=== PATIENT | female | born 1950 | race African-American/Black ===

== ENCOUNTER 2024-11-05 10:19 | Outpatient (AMB) | payer MEDICARE, OTHER, SELFPAY ==
--- NOTE | 2024-11-05 10:45 | A.OFFVIS_ITS ---
VS Expanded 11/05/24 13:39 11/05/24 13:46 Height 5 ft 5 in 5 ft 5 in Weight 213 lb 13.574 oz 214 lb BMI 35.6 35.6 Intake Visit Reasons: Elevated BMI Nutrition Presentation Details: Pt presents for MNT for Obesity with T2DM pt reports working on diet modification but not able to lose weight , has ques tions regarding protein foods and adequate portion sizes of starches food frequency fruit: 0-1/d ve/wk dairy : 1-2/d fish 0-1/wk beverages: water, juice, soda,m ilk etoh/smoking--- physical activity: ADL UPE-Mhpzwwb-Ub.Jeor Equation Height: 5 ft 5 in Weight: 214 lb Resting Metabolic Rate: 1471.59 Calculated Activity Level: Sedentary Calories Needed to Maintain Weight: 1765.91 Diagnosis Nutrition problem #1: overweight/obesity As related to (etiology) #1: diagnosis As evidenced by (sign/symptom) #1: knowledge deficit of diet Assessment & Plan Assessment & Plan (1) T2DM (type 2 diabetes mellitus): Comment: with obesity Code(s): E11.9 - Type 2 diabetes mellitus without complications Category: Medical Plan: current wt: 97 kg (11/05 ) est kcal needs as per MSJ: 1800 est protein needs as per 1 g/kg BW: 100 est fluid needs as per 30 ml/kg BW: 2900 Recommended fiber > 12 g /day and gradually increase up to 25-28 g /day or as tolerated Nutrition topics discussed : Reviewed (R), Pt verbalized understanding (V) , not applicable (N/A) R, : Healthy Plate Method Concept: R, V, N/A: Carbohydrates: food sources of carbohydrates, relationship of carbohydrates to blood glucose, fatty liver GI health. Recommended total amount of carbohydrates per meals and snack. Differences between simple carbohydrates and complex carbohydrates R, : Lean protein foods including vegan , vegetarian sources of protein. Benefits of protein (including but not limited to healing, nutritional value , benefits in weight loss, glucose control R, : Fats : Source of fats, benefits of fats. Difference between saturated and unsaturated fats. Saturated fats and its contribution to inflammation R, V, N/A: Fiber: food sources and role of fiber in the diet (including but not limited to its role as a prebiotic, benefits in constipation, role in IBS , role in glucose control and cholesterol level) R, V, N/A: Hydration: role of hydration and prevention of dehydration or over hydration. Foods and water content. R, V, N/A: Vitamins and Minerals in foods and supplements R, V, N/A: Interpreting food labels, including serving size, macronutrients, vitamins, minerals, allergens, ingredient list , % daily value Patient Instructions: Work on having 3 scheduled meals per day and 2 snack Aim at reducing total carb per meal to 45 g and snack to less than 20 g following healthy plate method Coding Level of Care Code Nutr Indiv Intake (12685) Diagnoses T2DM (type 2 diabetes mellitus) E11.9 Time Spent (min) 30
[2024-11-05 13:39] VITALS: BMI 35.6
[2024-11-11 11:57] VITALS: BMI 35.6
== END 2024-11-05 11:14 | disposition home or self-care (01) ==
PROVIDERS: PCP Physician Assistant; Visit Provider Dietitian, Registered
DX: E11.9 Type 2 diabetes mellitus without complications (principal)

== ENCOUNTER → 2024-11-05 10:19 | Outpatient (BNVA) | payer MEDICARE, OTHER, SELFPAY | PROVIDERS: PCP Physician Assistant; Visit Provider Dietitian, Registered | DX: E11.9 Type 2 diabetes mellitus without complications (principal); E66.9 Obesity, unspecified; Z71.3 Dietary counseling and surveillance | CPT/HCPCS: 97802 ==

== ENCOUNTER 2025-01-21 10:53 | Outpatient (AMB) | payer MEDICARE, OTHER, SELFPAY ==
--- NOTE | 2025-01-21 11:04 | MHC.AMNUTRGE ---
VS Expanded 01/21/25 11:31 Height 5 ft 5 in Weight 204 lb BMI 33.9 Intake Visit Reasons: obesity t2dm Medication List - Last Reconciled 01/21/[address], LDN carvedilol 12.5 mg PO BID empagliflozin (Jardiance) 10 mg PO DAILY ferrous sulfate (Feosol) 325 mg PO DAILY furosemide (Lasix) 40 mg PO DAILY insulin degludec (Tresiba U-100 Insulin) 30 units subcut DAILY insulin lispro (Admelog U-100 Insulin lispro) 1 sliding scale dose subcut USEASDIRECTD lactobacillus combination no.9 (Adult 50 Plus Probiotic) 4,000 mmu cells PO DAILY levothyroxine 50 mcg PO DAILY magnesium oxide 400 mg PO BID mycophenolate sodium 360 mg PO BID rosuvastatin (Crestor) 40 mg PO DAILY tirzepatide (Mounjaro) 5 mg subcut QWEEK valsartan 320 mg PO DAILY Nutrition Presentation Details: PT presents for MNT follow-up for T2DM Patient reports doing well. Patient's B d average at 163 mg/dl, 67 % within range , 25% high and 8% very high, and less than 1 % low Patient reports having 3 meals a day, her highest blood sugars tend to be in the evening. Today will continue to review at modifications in terms of increasing fiber in the evening meals. Patient reports sometimes taking insulin after the meals versus before meals and these leads to hypoglycemia. Patient verbalizes treating hypoglycemia by following the rule of 15 APC-Ztydkhv-Vt.Jeor Equation Height: 5 ft 5 in Weight: 204 lb Resting Metabolic Rate: 1426.28 Calculated Activity Level: Sedentary Calories Needed to Maintain Weight: 1711.54 Assessment & Plan Assessment & Plan (1) T2DM (type 2 diabetes mellitus): Comment: with obesity Code(s): E11.9 - Type 2 diabetes mellitus without complications Category: Medical Plan: current wt: 97 kg (11/05 ) 92 kg (January/2025 est kcal needs as per MSJ: 1700 est protein needs as per 1 g/kg BW: 100 est fluid needs as per 30 ml/kg BW: 2900 Recommended fiber > 12 g /day and gradually increase up to 25-28 g /day or as tolerated Nutrition topics discussed : Reviewed (R), Pt verbalized understanding (V) , not applicable (N/A) R, : Healthy Plate Method Concept: R, V: Carbohydrates: food sources of carbohydrates, relationship of carbohydrates to blood glucose, fatty liver GI health. Recommended total amount of carbohydrates per meals and snack. Differences between simple carbohydrates and complex carbohydrates R, : Lean protein foods including vegan , vegetarian sources of protein. Benefits of protein (including but not limited to healing, nutritional value , benefits in weight loss, glucose control R, : Fats : Source of fats, benefits of fats. Difference between saturated and unsaturated fats. Saturated fats and its contribution to inflammation R, : Fiber: food sources and role of fiber in the diet (including but not limited to its role as a prebiotic, benefits in constipation, role in IBS , role in glucose control and cholesterol level) R, : Hydration: role of hydration and prevention of dehydration or over hydration. Foods and water content. R, V, N/A: Vitamins and Minerals in foods and supplements R, V, N/A: Interpreting food labels, including serving size, macronutrients, vitamins, minerals, allergens, ingredient list , % daily value Patient Instructions: Choose fiber rich foods: Choose starchy vegetables over starches, choose whole grain breads and cereals, read food labels, choose foods with higher than 3 g of fiber per serving size Take Admelog before meals according to blood glucose before the meal versus after meals to prevent hypoglycemia (unless otherwise specified by your Dr.) Treat low blood sugar by following rule of 15 (15 g of carbohydrates, weight 15 minutes and re check blood glucose, Keep active as able , goal greater than 30 minutes per day unless otherwise specified by your Dr. Coding Level of Care Code Nutr Indiv Subseq (96675) Diagnoses T2DM (type 2 diabetes mellitus) E11.9 Time Spent (min) 30
[2025-01-21 11:31] VITALS: BMI 33.9
[2025-01-21 12:28] VITALS: BMI 33.9
== END 2025-01-21 12:34 | disposition home or self-care (01) ==
LOC: HO.ENCR 10:54
PROVIDERS: PCP Physician Assistant; Visit Provider Dietitian, Registered
DX: E11.9 Type 2 diabetes mellitus without complications (principal)

== ENCOUNTER → 2025-01-21 10:53 | Outpatient (BNVA) | payer MEDICARE, OTHER, SELFPAY | PROVIDERS: PCP Physician Assistant; Visit Provider Dietitian, Registered | DX: E11.9 Type 2 diabetes mellitus without complications (principal) | CPT/HCPCS: 97803 ==